=== PATIENT | female | born 2000 | race Hispanic/Latino ===

== ENCOUNTER 2025-01-11 20:29 | Day surgery (SDC) | payer OTHER ==
[2025-01-11] MEDS ORDERED: hydrALAZINE 20 MG/ML VIAL SLOW IVP PRN (21:09)
== END 2025-01-11 23:56 | disposition home or self-care (01) ==
LOC: CSHLD/OP 20:29
PROVIDERS: ATTEND Family Medicine
DX: O47.03 False labor before 37 completed weeks of gestation, third trimester (principal); Z3A.36 36 weeks gestation of pregnancy; Z79.899 Other long term (current) drug therapy

== ENCOUNTER 2025-01-29 18:00 | Inpatient (IN) | payer MEDICAID, OTHER ==
[2025-01-29 22:07] VITALS: BMI 29.0
[2025-01-29] MEDS ORDERED: Acetaminophen 500 MG TAB PO PRN (22:13)
[2025-01-29] MEDS ORDERED: Methylergonovine 0.2 MG/ML VIAL IM PRN (22:13)
[2025-01-29] MEDS ORDERED: HYDROcodone/Acetaminophen 5/325 mg Tablet PO PRN (22:13)
[2025-01-29] MEDS ORDERED: Ondansetron PF 4 MG/2 ML Vial IVP PRN (22:13)
[2025-01-29] MEDS ORDERED: Diphenoxylate HCl/Atropine Tablet PO PRN (22:13)
[2025-01-29] MEDS ORDERED: Tranexamic Acid 1,000 MG/10 ML VIAL IVP PRN (22:13)
[2025-01-29] MEDS ORDERED: Lidocaine 1% (PF) 30 ML VIAL SC PRN (22:13)
[2025-01-29] MEDS ORDERED: hydrALAZINE 20 MG/ML VIAL SLOW IVP PRN (22:13)
[2025-01-29] MEDS ORDERED: Carboprost 250 MCG/ML AMP IM PRN (22:13)
[2025-01-29] MEDS ORDERED: Oxytocin 30 units/NS 500 ML 500 ML IV SCH (22:15)
[2025-01-29 22:22] LABS: Hematocrit 39.1 % (34.9-44.5); Hemoglobin 13.4 g/dL (12.0-15.5); Mean Corpuscular Hemoglobin 30.7 pg (27.0-33.0); Mean Corpuscular Volume 89.5 fL (81.6-98.3); Platelet Count 188 10x3/uL (150-450); Red Blood Cell (RBC) Count 4.37 10x6/uL (3.90-5.03); White Blood Cell (WBC) Count 7.61 10x3/uL (3.5-10.5)
[2025-01-29 22:46] LABS: Glucose 85 mg/dL (70-105)
[2025-01-29 22:51] LABS: Hep B Surf Ag - L&D Non-Reactive S/CO (NonReactive)
[2025-01-29 22:52] LABS: Syphilis Antibody Index 0.04 S/CO (<1.00 Non-Reactive)
[2025-01-30] MEDS: Oxytocin 30 units/NS 500 ML 500 ML IV SCH (03:25)
[2025-01-30] MEDS: fentaNYL/Ropivacaine Epidural 100 ML ONE (09:01)
[2025-01-30] MEDS ORDERED: diphenhydrAMINE 50 MG/ML VIAL IVP PRN (09:18)
[2025-01-30] MEDS ORDERED: Ondansetron PF 4 MG/2 ML Vial IVP PRN ×2 (09:18→15:54)
[2025-01-30] MEDS ORDERED: Communication Order-Pharmacy FS SCH (09:30)
[2025-01-30] MEDS ORDERED: fentaNYL 2 mcg/Ropivacaine 0.2% Epidural 100 ML CADD EPIDURAL SCH (09:30)
[2025-01-30] MEDS: Ibuprofen 800 MG TAB PO PRN (14:01)
[2025-01-30] MEDS ORDERED: diphenhydrAMINE 25 MG CAP PO PRN (15:54)
[2025-01-30] MEDS ORDERED: hydrALAZINE 20 MG/ML VIAL SLOW IVP PRN (15:54)
[2025-01-30] MEDS ORDERED: Bisacodyl 10 MG SUPP PR PRN (15:54)
[2025-01-30] MEDS ORDERED: Milk Of Magnesia 30 ML UDCUP PO PRN (15:54)
[2025-01-30] MEDS ORDERED: Lanolin Ointment 7 GM TUBE TOP PRN (15:54)
[2025-01-30] MEDS: Acetaminophen 325 MG TAB PO PRN (16:09)
[2025-01-30] MEDS: Ibuprofen 800 MG TAB PO SCH ×2 (19:35→20:42)
[2025-01-30] MEDS: Ferrous Sulfate 325 MG TAB PO SCH (19:36)
[2025-01-31] MEDS: Benzocaine-Menthol 82.5 ML CAN TOP PRN (08:24)
[2025-01-31] MEDS: HYDROcodone/Acetaminophen 5/325 mg Tablet PO PRN (10:03)
[2025-02-01 07:30] VITALS: BP 102/51; TEMP 98.5
== END 2025-02-01 15:20 | disposition home or self-care (01) | DRG 807 ==
LOC: CSHLD 20:41 → CSHPED 01-30 14:43
PROVIDERS: ADMIT Family Medicine; ATTEND Family Medicine
PROC: 10907ZC Drainage of Amniotic Fluid, Therapeutic from Products of Conception, Via Natural or Artificial Opening (ICD-10-PCS; 2025-01-29)
PROC: 3E0DXGC Introduction of Other Therapeutic Substance into Mouth and Pharynx, External Approach (ICD-10-PCS; 2025-01-29)
PROC: 10E0XZZ Delivery of Products of Conception, External Approach (ICD-10-PCS; principal; 2025-01-30)
PROC: 0UQGXZZ Repair Vagina, External Approach (ICD-10-PCS; 2025-01-30)
PROC: 0UQMXZZ Repair Vulva, External Approach (ICD-10-PCS; 2025-01-30)
DX: O24.420 Gestational diabetes mellitus in childbirth, diet controlled (principal); O70.0 First degree perineal laceration during delivery; Z37.0 Single live birth; Z3A.39 39 weeks gestation of pregnancy; Z79.82 Long term (current) use of aspirin; Z79.899 Other long term (current) drug therapy
CPT/HCPCS: 36416; 51702; 82947; 85027; 86780; 86850; 86900; 86901; 87340; J2590; J7120